=== PATIENT | female | born 1990 | race Caucasian/White ===

== ENCOUNTER → 2020-02-02 | Day surgery (SDC) | payer BC ==
[~2020-02-02] VITALS: Ht 71 cm; Wt 70.0 kg
[~2020-02-02] MED LIST: LIDOCAINE 1% INJ 20 ML 20 ML VIAL INJ ONE; LIDOCAINE 1% INJ 20 ML 20 ML VIAL ONE
[2020-02-02 14:18] VITALS: BP 110/60
--- NOTE | 2020-02-02 15:08 | Diagnostic Imaging Report ---
INDICATION: Right thyroid nodule. Patient presents for ultrasound-guided fine-needle aspiration. PROCEDURE: Patient was brought to the procedure room and placed on the table in the supine position. Ultrasound imaging of the right neck was performed to evaluate appropriate entry site. The right neck was then prepped and draped in the usual sterile fashion. A small amount of 1% lidocaine was utilized for local anesthesia. A total of four passes were made into the slightly hyperechoic mass either within or just lateral to the lateral portion of the right lobe of the thyroid. 25-gauge needles were utilized. Fine needle aspiration technique was performed. Hemostasis was obtained using manual compression. Patient tolerated the procedure well and left the department in stable condition. IMPRESSION: Successful ultrasound-guided fine-needle aspiration of the nodule adjacent to or along the lateral aspect of the right lobe of the thyroid. Pathology results are currently pending. Dictated by: Dictated on workstation # [id number]
--- OUTSIDE RECORDS SUMMARY | 2020-02-02 18:52 | XMS REPORT | Continuity of Care Document ---
Demographics Preferred Language Unknown Marital Status Unknown [employer] Affiliation Unknown Race Unknown Ethnic Group Unknown Author Organization Unknown Address Unknown Phone Unavailable Allergies Active Description Code Type Severity Reaction Onset Reported/Identified Relationship to Patient Clinical Status Yes NO KNOWN DRUG ALLERGIES UNKNOWN NO KNOWN DRUG ALLERG Yes NO KNOWN DRUG ALLERGIES UNKNOWN UNKNOWN Medications There is no data. Problems Date Dx Coded Attending Type Code Diagnosis Diagnosed By 06/05/2017 Dimas Laura 640.93 UNSPECIFIED HEMORRHAGE IN EARLY , ANTEPARTUM CONDITION OR COMPLICATION 06/05/2017 Dimas Laura O20.9 HEMORRHAGE IN EARLY , UNSPECIFIED 06/05/2017 Dimas Laura Z3A.01 LESS THAN 8 WEEKS GESTATION OF 10/29/2017 A 461 ACUTE SINUSITIS 10/29/2017 A J01.90 ACU TE SINUSITIS, UNSPECIFIED Procedures There is no data. Results Test Result Range Comprehensive Metabolic Panel - 05/29/16 10:40 Albumin 4.8 g/dL 3.6-5.1 ALP 95 U/L 35-130 ALT 14 U/L 6-45 Anion Gap 12 6-14 AST 15 U/L 2-40 BUN 11 mg/dL 5-25 Calcium 9.8 mg/dL 8.3-10.4 Chloride 110 mmol/L 95-114 CO2 27 mEq/L 22-33 Creat 0.69 mg/dL 0.50-1.50 eGFR 102 mL/min/1.73m2 >59 Globulin 2.7 g/dL 2.3-3.5 Glucose 77 mg/dL 70-110 Osmo 298 280-295 Potassium 4.1 mmol/L 3.5-5.3 Sodium 145 mmol/L 134-148 TBil 0.8 mg/dL 0.2-1.2 TP 7.5 g/dL 6.0-8.3 Progesterone - 05/02/17 11:00 Progesterone 12.8 ng/mL Progesterone - 05/02/17 11:00 PROGESTERONE 12.8 NG/ML ABO/RH - 06/05/17 14:06 ABO/RH A POSITIVE Urinalysis - 06/05/17 14:06 Icotest N/A Negative Urine Volume Urine Volume Sufficient (10mL) Urine-Appearance Clear Clear Urine-Bacteria 1+ Urine-Bilirubin Negative Negative Urine-Blood 2+ Negative Urine-Color Yellow Colorless-Lt. [place] ow Urine-Epithelial Cells 0-5/HPF Urine-Glucose Negative Negative Urine-Ketones 1+ Negative Urine-Leukocytes Negative Negative Urine-Mucus 2+ Urine-Nitrite Negative Negative Urine-Other Urine Saved if Culture Need ed (48hrs from time of collection) Urine-pH 7.0 5-8.5 Urine-Protein Negative Negative Urine-RBC 10-20/HPF Urine-Specific [place] 1.020 1.000-1 .030 Urine-WBC Few/HPF Urobilinogen 0.2 E.U./dL 0.2-1.0 Urinalysis - 07/22/17 16:09 Icotest N/A Negative Urine Volume Urine Volume Sufficient (10mL) Urine Yeast No Yeast present Urine-Appearance Clear Clear Urine-Bacteria Trace Urine-Bilirubin Negative Negative Urine-Blood 2+ Negative Urine-Color Yellow Colorless-Lt. [place] ow Urine-Epithelial Cells 0-5/HPF Urine-Glucose Negative Negative Urine-Ketones Negative Negative Urine-Leukocytes Trace Negative Urine-Mucus 1+ Urine-Nitrite Negative Negative Urine-Other Culture to follow Urine-pH 8.5 5-8.5 Urine-Protein 1+ Negative Urine-RBC 2-5/HPF Urine-Specific [place] 1.020 1.000-1 .030 Urine-WBC Few/HPF Urobilinogen 0.2 0.2-1.0 Sed Rate - 10/12/19 12:14 Sed Rate 6 mm/hr 9-15 Encounters ACCT No. Visit Date/Time Discharge Status Pt. Type Provider Facility Loc./Unit Complaint [id number] 05/04/2017 14:13:00 Document Registration [id number] 01/23/2020 09:54:00 01/23/2020 23:59 :00 DIS Outpatient Swapnil Taveras [id number] 12/26/2019 09:51:00 12/26/2019 23:59 :00 DIS Outpatient Sobia Stroud [id number] 12/19/2019 15:56:00 12/19/2019 23:59 :00 DIS Outpatient Sobia Stroud [id number] 10/12/2019 14:35:00 10/12/2019 23:59 :00 DIS Outpatient Sobia tSroud [id number] 10/12/2019 12:07:00 10/12/2019 23:59 :00 DIS Outpatient Sobia Stroud [id number] 05/24/2019 10:31:00 05/24/2019 23:59: 00 DIS Outpatient Selena Kimble [id number] 05/04/2019 08:24:00 05/04/2019 23:59: 00 DIS Outpatient Sobia Stroud [id number] 07/22/2017 16:09:00 07/22/2017 23:59: 00 DIS Outpatient Sobia Stroud [id number] 06/05/2017 13:35:00 06/05/2017 15:47: 00 DIS Outpatient Dimas Laura [id number] 05/02/2017 11:04:00 05/02/2017 23:59: 00 DIS Outpatient BRANDEN CROFT [id number] 05/29/2016 08:49:00 05/29/2016 23:59: 00 DIS Outpatient Sobia Stroud [id number] 10/29/2017 15:03:00 Document Registration [id number] 02/02/2020 13:00:00 P EN Preadmit SWAPNIL TAVERAS DO [facility] RAD THYROID NODULE
== END | disposition home or self-care (01) ==
LOC: RAD 12:27
PROVIDERS: ATTEND Otolaryngology
DX: E06.3 Autoimmune thyroiditis (principal); E04.1 Nontoxic single thyroid nodule

== ENCOUNTER → 2020-11-07 | Outpatient (CLI) | payer BC, OTHER ==
--- NOTE | 2020-11-07 09:49 | Diagnostic Imaging Report ---
PROCEDURE: US Thyroid. TECHNIQUE: Multiple real-time grayscale images were obtained of the thyroid in various projections. INDICATION: Thyroid nodule and Socorro's thyroiditis. Correlation is made with outside thyroid ultrasound from 12/26/2019. A right lobe thyroid measures 5.5 x 1.9 x 2.2 cm and left lobe measures 4.8 x 1.5 x 1.8 cm. Isthmus is 2 mm in thickness. Both lobes are heterogeneous. A previously noted aspirated nodule along the lateral aspect of the right lobe appears similar to prior exam. Margins are less distinct than prior exam and therefore an accurate measurement would be difficult. No new mass is identified. IMPRESSION: Overall stable thyroid ultrasound when compared to outside exam from 12/26/2019. Dictated by: Dictated on workstation # [id number]
== END ==
LOC: RAD 08:00
PROVIDERS: ATTEND Internal Medicine Endocrinology, Diabetes & Metabolism
DX: E06.3 Autoimmune thyroiditis (principal); E04.1 Nontoxic single thyroid nodule
CPT/HCPCS: 76536